=== PATIENT | male | born 1950 | race Caucasian/White ===

== ENCOUNTER → 2017-03-21 | Outpatient (CLI) | payer BC ==
[~2017-03-21] MED LIST: CATAPRES 0.1MG0.1 MG PO; CHLORTHALIDONE25 MG PO; ELAVIL 25 MG TA25 MG PO; FLOMAX 0.4 MG0.4 MG PO; HYDRALAZINE HCL25 MG PO; HYDROXYZINE HCL10 MG PO; LANTUS100 UNIT/1 SQ; LIPITOR TAB 2020 MG PO; LISINOPRIL20 MG PO; NORVASC 5 MG TAB5 MG PO; NOVOLOG 10100 UNITS/ SQ; SINGULAIR10 MG PO; SYNTHROID50 MCG PO; ULORIC 40 MG TA40 MG PO; VALTESSA PO; VENTOLIN HFA 66.7 GM INH; VITAMIN D250000 UNIT PO
== END ==
LOC: LAB 07:29
PROVIDERS: Internal Medicine
DX: N18.9 Chronic kidney disease, unspecified (principal)
CPT/HCPCS: 36415; 80048

== ENCOUNTER → 2020-08-01 | Outpatient (CLI) | payer BC, MEDICARE, OTHER ==
[~2020-08-01] MED LIST changes: +ZOFRAN ODT 4 MG4 MG PO
[2020-08-01 07:07] LABS: HEMOGLOBIN 16.7 gm/dl (14.0-17.5); RED BLOOD COUNT 6.02 M/UL (4.20-5.50); WHITE BLOOD COUNT 5.6 K/UL (4.5-11.0)
[2020-08-01 07:44] LABS: BUN/CREATININE RATIO 18 (0-10)
[2020-08-04 14:11] LABS: TACROLIMUS BY IMMUNOASSAY 5.7 ng/mL (2.0-20.0)
[2020-08-05 07:11] LABS: CMV QUANT DNA PCR (PLASMA) Positive < 200 IU/mL (Negative)
[2020-08-06 07:10] LABS: BK QUANTITATION PCR Negative (Negative)
== END ==
LOC: LAB 06:29
PROVIDERS: Internal Medicine Nephrology
DX: D64.9 Anemia, unspecified (principal); R39.9 Unspecified symptoms and signs involving the genitourinary system; Z51.81 Encounter for therapeutic drug level monitoring; R79.89 Other specified abnormal findings of blood chemistry; Z94.0 Kidney transplant status; Z79.899 Other long term (current) drug therapy
CPT/HCPCS: 36415; 80061; 80069; 80076; 80197; 81001; 82570; 83036; 83735; 84156; 85025; 87086; 87497; 87799

== ENCOUNTER → 2021-02-17 | Outpatient (CLI) | payer BC, MEDICARE ==
[2021-02-17 09:01] LABS: HEMOGLOBIN 17.1 gm/dl (14.0-17.5); RED BLOOD COUNT 6.1 M/UL (4.20-5.50); WHITE BLOOD COUNT 6.6 K/UL (4.5-11.0)
[2021-02-19 20:09] LABS: CMV QUANT DNA PCR (PLASMA) Positive < 200 IU/mL (Negative)
[2021-02-21 07:11] LABS: BK QUANTITATION PCR Negative (Negative)
== END ==
LOC: LAB 06:54
PROVIDERS: Internal Medicine; Internal Medicine Nephrology
DX: I12.9 Hypertensive chronic kidney disease with stage 1 through stage 4 chronic kidney disease, or unspecified chronic kidney disease (principal); E11.22 Type 2 diabetes mellitus with diabetic chronic kidney disease; N18.9 Chronic kidney disease, unspecified; D63.1 Anemia in chronic kidney disease; R79.89 Other specified abnormal findings of blood chemistry; R39.9 Unspecified symptoms and signs involving the genitourinary system; Z51.81 Encounter for therapeutic drug level monitoring; R97.20 Elevated prostate specific antigen [PSA]; E78.5 Hyperlipidemia, unspecified; E03.9 Hypothyroidism, unspecified; E55.9 Vitamin D deficiency, unspecified; Z94.0 Kidney transplant status; Z79.899 Other long term (current) drug therapy
CPT/HCPCS: 36415; 80053; 80061; 80197; 82570; 83036; 83735; 84100; 84153; 84156; 84439; 84443; 85025; 87086; 87497; 87799

== ENCOUNTER → 2021-02-18 | Outpatient (CLI) | payer BC, MEDICARE | LOC: HEART 5 08:13 | DX: I42.0 Dilated cardiomyopathy (principal) | CPT/HCPCS: ECHO; 76700; 93306 ==

== ENCOUNTER → 2021-03-19 | Outpatient (CLI) | payer BC, MEDICARE ==
[2021-03-19 09:10] LABS: HEMOGLOBIN 16.4 gm/dl (14.0-17.5); RED BLOOD COUNT 6.13 M/UL (4.20-5.50); WHITE BLOOD COUNT 6.2 K/UL (4.5-11.0)
== END ==
LOC: LAB 06:43
PROVIDERS: Internal Medicine Nephrology
DX: Z51.81 Encounter for therapeutic drug level monitoring (principal); R39.9 Unspecified symptoms and signs involving the genitourinary system; D64.9 Anemia, unspecified; R79.89 Other specified abnormal findings of blood chemistry; Z79.899 Other long term (current) drug therapy; Z94.0 Kidney transplant status
CPT/HCPCS: 36415; 80069; 80197; 82570; 83735; 84156; 85025; 87086

== ENCOUNTER → 2021-04-17 | Outpatient (CLI) | payer BC, MEDICARE ==
[2021-04-17 07:41] LABS: HEMOGLOBIN 16.3 gm/dl (14.0-17.5); RED BLOOD COUNT 6.05 M/UL (4.20-5.50); WHITE BLOOD COUNT 5.6 K/UL (4.5-11.0)
== END ==
LOC: LAB 06:38
PROVIDERS: Internal Medicine Nephrology
DX: Z48.22 Encounter for aftercare following kidney transplant (principal); Z51.81 Encounter for therapeutic drug level monitoring; Z79.899 Other long term (current) drug therapy; D64.9 Anemia, unspecified
CPT/HCPCS: 36415; 80069; 80197; 82570; 83735; 84156; 85025; 87086

== ENCOUNTER → 2021-05-15 | Outpatient (CLI) | payer BC, MEDICARE ==
[2021-05-15 08:03] LABS: HEMOGLOBIN 17.4 gm/dl (14.0-17.5); RED BLOOD COUNT 6.21 M/UL (4.20-5.50)
[2021-05-15 08:29] LABS: BUN/CREATININE RATIO 16 (0-10)
== END ==
LOC: LAB 07:07
PROVIDERS: Internal Medicine Nephrology
DX: Z51.81 Encounter for therapeutic drug level monitoring (principal); D64.9 Anemia, unspecified; R79.89 Other specified abnormal findings of blood chemistry; R39.9 Unspecified symptoms and signs involving the genitourinary system; Z94.0 Kidney transplant status; Z79.899 Other long term (current) drug therapy
CPT/HCPCS: 36415; 80069; 80197; 82570; 83735; 84156; 85025; 87086

== ENCOUNTER → 2021-07-31 | Outpatient (CLI) | payer BC, MEDICARE | LOC: LAB 16:11 | PROVIDERS: Internal Medicine | DX: E87.5 Hyperkalemia (principal) | CPT/HCPCS: 36415; 80048 ==

== ENCOUNTER → 2021-11-02 | Outpatient (CLI) | payer BC, MEDICARE | LOC: HEART 5 15:00 | DX: I63.9 Cerebral infarction, unspecified (principal) ==